=== PATIENT | male | born 1945 | race Caucasian/White ===

== ENCOUNTER 2019-05-31 13:24 | Inpatient (IN) ==
[2019-05-31] MEDS ORDERED: NS 1,000 ML IV PRN (13:57)
--- NOTE | 2019-05-31 14:13 | EKG Report ---
Test Performed on : 05/31/2019 1:40:06 PM Test Reason : Stroke like symptoms Blood Pressure : / mmHG Vent. Rate : 094 BPM Atrial Rate : 096 BPM P-R Int : 000 ms QRS Dur : 094 ms QT Int : 384 ms P-R-T Axes : 000 062 047 degrees QTc Int : 480 ms Accelerated Junctional rhythm. Prolonged QT Abnormal ECG When compared with ECG of 12-SEP-2016 12:03, Junctional rhythm. has replaced Sinus rhythm. Vent. rate has increased BY 39 BPM Unconfirmed Result
--- NOTE | 2019-05-31 14:19 | Diag Imaging Result Doc PS360 ---
EXAM: CHEST-PORTABLE 05/31/2019 HISTORY: weakness TECHNIQUE: AP portable upright at 1412 COMMENT: The inspiration is less optimal than on 06/11/2018. There is some ill-defined opacity in the left base laterally which was not present on the previous study. There are sternotomy wires. There is a Port-A-Cath on the right with its tip in the right atrium. IMPRESSION: Left lower lobe pneumonia. Electronically signed by Jesus Alberto Kern 05/31/2019 2:17 PM
--- NOTE | 2019-05-31 14:30 | Diag Imaging Result Doc PS360 ---
EXAM: CT HEAD W/O CONTRAST 05/31/2019 HISTORY: generalized weakness, difficulty walking, hx of ca TECHNIQUE: This exam was performed using automated exposure control, adjustment of mA or kV according to patient size, and/or use of iterative reconstruction technique. COMMENT: There is a small lacune in the right side of the juice which was apparently present on 07/06/2011. There is also a lacune in the same and on the right. There are patchy lucencies in the white matter of both hemispheres. No evidence of mass effect, bleed, or abnormal extra-axial fluid collection is present. IMPRESSION: Chronic microvascular white matter changes and old lacunae. No evidence of acute intracranial disease. Electronically signed by Jesus Alberto Kern 05/31/2019 2:28 PM
[2019-05-31 14:59] LABS: BASO# 0.02 X1000 (0.0-0.2); BASO% 0.2 % (0.0-0.8); EOS# 0.08 X1000 (0.0-0.7); EOS% 0.6 % (0.0-10.0); HEMATOCRIT 38.6 % (42.0-52.0); HEMOGLOBIN 12.8 g/dL (14.0-18.0); IMM GRAN# 0.03 X1000 (0.0-0.04); IMM GRAN% 0.2 % (0.0-0.5); LYMPH# 0.91 X1000 (1.2-3.4); LYMPH% 6.9 % (20.5-51.1); MCH 30.5 PG (27-31); MCHC 33.2 g/dL (33-37); MCV 92.1 FL (81-99); MONO# 0.87 X1000 (0.11-0.59); MONO% 6.6 % (1.7-9.3); MPV 9.8 FL (7.4-10.4); NEUT# 11.21 X1000 (1.4-6.5); NEUT% 85.5 % (42.2-75.2); PLT 175 X1000 (130-400); RBC 4.19 XMIL (4.7-6.1); RDW 12.8 % (11.5-14.5); WBC 13.12 X1000 (4.8-10.8)
[2019-05-31 14:59] LABS: URINE SOURCE CLEAN CATCH
[2019-05-31 15:02] LABS: BILIRUBIN URINE NEGATIVE (NEGATIVE); BLOOD URINE NEGATIVE (NEGATIVE); COLOR YELLOW; GLUCOSE URINE >1000 mg/dL (NEGATIVE); KETONE URINE NEGATIVE (NEGATIVE); LEUKOCYTES URINE NEGATIVE (NEGATIVE); NITRITE URINE NEGATIVE (NEGATIVE); PROTEIN URINE TRACE mg/dL (NEGATIVE); SP GRAVITY URINE 1.032; TURBIDITY URINE CLEAR (CLEAR); UR EPITHELIAL CELLS <10 /HPF (<10); URINE BACTERIA NEGATIVE /HPF; URINE RBC <10 /HPF (<10); URINE WBC <10 /HPF (<10); UROBILINOGEN URINE 2 mg/dL (NORMAL)
[2019-05-31 15:02] LABS: INR 1.24; PROTIME 15.8 Seconds (11.0-16.0)
[2019-05-31 15:03] LABS: PTT 37.1 Seconds (22.3-41.8)
[2019-05-31 15:19] LABS: AGAP 14; ALB/GLOB RATIO 1.7; ALBUMIN 3.8 g/dL (3.5-5.0); ALKALINE PHOSPHATASE 77 U/L (32-122); BUN 9 mg/dL (8-22); CALCIUM 9.4 mg/dL (8.8-10.2); CHLORIDE 99 mmol/L (98-107); COSMO 287; CREATININE 0.5 mg/dL (0.7-1.2); ESTIMATED GFR > 60; GLUCOSE 261 mg/dL (70-104); GOT 12 U/L (10-34); GPT 16 U/L (10-44); POTASSIUM 3.5 mmol/L (3.5-5.1); SODIUM 140 mmol/L (136-145); TCO2 27 mmol/L (25-35); TOTAL PROTEIN 6.1 g/dL (6.3-8.3)
[2019-05-31 15:21] LABS: UR AMPHETAMINES QUAL NONE DETECTED (NONE DETECT); UR BARBITUATES QUAL NONE DETECTED (NONE DETECT); UR BENZODIAZEPIN QUAL NONE DETECTED (NONE DETECT); UR CANNABINOIDS QUAL NONE DETECTED (NONE DETECT); UR COCAINE QUAL NONE DETECTED (NONE DETECT); UR METHADONE QUAL NONE DETECTED (NONE DETECT); UR OPIATES QUAL NONE DETECTED (NONE DETECT); UR OXYCODONE QUAL NONE DETECTED (NONE DETECT); UR PCP QUAL NONE DETECTED (NONE DETECT)
[2019-05-31] MEDS ORDERED: ROCEPHIN IV ONE (16:06)
--- NOTE | 2019-05-31 16:24 | PROVIDER DOCUMENTATION ---
This chart was entered by Abdias Rios Scribe, acting as scribe for Aby Rosen MD. HPI-General Adult - General Chief Complaint: Weakness Stated Complaint: ISSUES WALKING/ SITTING Time Seen by Provider: 05/31/19 13:43 Source: patient Allergies/Adverse Reactions: Patient Allergies Allergy/AdvReac Type Severity Reaction Status Date / Time No Known Allergies Allergy Verified 06/11/18 07:23 Home Medications: Home Medication List Medication Instructions Recorded Confirmed Last Taken Type Amlodipine Besylate [Norvasc] 5 mg PO DAILY 12/21/14 05/31/19 05/31/19 08:00 History 5 mg Ferrous Sulfate 325 mg PO DAILY 12/21/14 05/31/19 05/31/19 08:00 History 325 mg ATORVAstatin [Lipitor] 80 mg PO DAILY 06/11/18 05/31/19 05/31/19 08:00 History 80 mg Albuterol Sulfate [Albuterol 2 puff INH Q4-6H PRN PRN 05/31/19 05/31/19 Unknown History Sulfate Hfa] Apixaban [Eliquis] 5 mg PO BID 05/31/19 05/31/19 05/31/19 08:00 History 5 mg Arformoterol Neb [Brovana Neb] 15 microgm INH RTQ12H 05/31/19 05/31/19 05/31/19 08:00 History 1 inh Budesonide [Pulmicort] 1 vial INH BID 05/31/19 05/31/19 05/31/19 08:00 History 1 inh Glipizide [Glipizide ER] 10 mg PO DAILY 05/31/19 05/31/19 05/31/19 08:00 History 10 mg Multivit-Min/FA/Lycopen/Lutein 1 ea PO DAILY 05/31/19 05/31/19 05/31/19 08:00 History [Complete Multi 50+ Tablet] 1 tab Potassium Chloride [Klor-Con] 20 meq PO DAILY 05/31/19 05/31/19 05/31/19 08:00 History 20 meq Prednisone 10 mg PO DAILY 05/31/19 05/31/19 05/31/19 08:00 History 10 mg Tamsulosin [Flomax] 0.4 mg PO DAILY 05/31/19 05/31/19 05/31/19 08:00 History 0.4 mg Valsartan 160 mg PO DAILY 05/31/19 05/31/19 05/31/19 08:00 History 160 mg Vitamin B Complex [Super B-50 1 cap PO DAILY 05/31/19 05/31/19 05/31/19 08:00 History Complex] 1 Cap Zinc 50 mg PO DAILY 05/31/19 05/31/19 05/31/19 08:00 History 1 tab - History of Present Illness -Gen Adult Nature of Presenting Problems: 73 y/o M presents to the ED with due to an episode of weakness yesterday. Per , "He could hardly stand up or sit up." Patient's states that Dr. Santos referred patient to ED. Patient reports that weakness lasted "all evening" yesterday. Per patient's sx have improved since yesterday. Patient denies any confusion yesterday. reports that patient's speech was slurred yesterday, but has improved today. Patient c/o dull headache in left parietal region today and states that it was worse yesterday. Patient's states, "He has cancer in his sternum, spots on his lungs, and two places on his skull." Patient is not on active chemo. Location of Pain/Injury: reports: none Quality of Pain: reports: none Severity: reports: mild Onset/Duration: reports: 24 hours ago Timing: reports: gone now Context/Activities at Onset: reports: none Modifying Factors: improves with: nothing Associated Symptoms: reports: weakness Similar Symptoms Previously?: No Recently seen or treated by another doctor?: No Review of Systems - Adult - REVIEW OF SYSTEMS - ADULT Constitutional: denies: chills, fever Eyes: denies: decreased vision, blurred vision, double vision Ears, Nose, Mouth & Throat: reports: no symptoms reported Cardiovascular: denies: chest pain, palpitations Respiratory: denies: shortness of breath, wheezing Gastrointestinal: denies: abdominal pain, diarrhea, nausea, vomiting Genitourinary: denies: dysuria, frequency Musculoskeletal: reports: no symptoms reported Integumentary: reports: no symptoms reported Neurological: denies: dizziness/vertigo, headache/migraines, loss of balance Psychiatric: reports: no symptoms reported Endocrine: reports: no symptoms reported Hematologic/Lymphatic: reports: no symptoms reported Allergic/Immunologic: reports: no symptoms reported All Other Systems: Reviewed and Negative Past History - Adult - PAST MEDICAL HISTORY-ADULT Review of Records: reports: Nursing Assessment Review, Medications Reviewed Major Childhood Illnesses: reports: denies history Cardiovascular: reports: CAD, HTN, hyperlipidemia Respiratory: reports: denies history Gastrointestinal: reports: denies history Obstetrical/Gynecological: reports: denies history Genitourinary: reports: denies history Musculoskeletal: reports: denies history Neurological: reports: denies history Endocrine/Immune: reports: denies history Other Conditions: reports: other cancer (lip) - PRIOR SURGERIES/PROCEDURES Surgical/Procedure History: reports: recent surgery, CABG, other (excision of lip cancer) - IMMUNIZATION STATUS Childhood Immunizations: See Nurse Assessment Flu Vaccine: See Nurse Assessment - FAMILY HISTORY Family History: reviewed, not pertinent - SOCIAL HISTORY Smoking: cigarettes, less than 1 pack/day Substance Use: denies Physical Exam-General - PHYSICAL EXAM-ADULT Initial Vital Signs Reviewed: Yes - CONSTITUTIONAL General Appearance: alert, no apparent distress - EYES Eyes: PERRL/EOMI, pink conjunctivae - HEAD, EARS, NOSE, MOUTH & THROAT HENMT: moist mucous membranes - NECK Neck: full range of motion, normal inspection - RESPIRATORY Respiratory: lungs clear, no accessory muscle use, rhonchi, other (decreased breath sound on the left). negative: stridor, wheezing - CARDIOVASCULAR Cardiovascular: normal peripheral pulses, regular rate, rhythm - GASTROINTESTINAL (ABDOMEN) Abdominal Exam: non tender, soft - MUSCULOSKELETAL Back Exam: normal inspection Extremity: normal range of motion, normal capillary refill - SKIN Integumentary: normal color, warm/dry - NEUROLOGIC Neurologic: bioinformatics team member II-XII nml as tested - PSYCHIATRIC Psych/Mental Status: normal mood/affect, oriented x 3 Progress - PLAN OF CARE/RESULTS Progress/Plan/Lab Results: Vital Signs - 8 hr 05/31/19 13:27 05/31/19 13:44 05/31/19 14:01 Temperature 97.3 F L Pulse Rate 89 91 H 92 H Respiratory Rate 22 21 22 Blood Pressure 137/65 131/73 119/60 O2 Sat by Pulse Oximetry 97 94 L 99 05/31/19 14:31 Temperature Pulse Rate 89 Respiratory Rate 21 Blood Pressure 132/63 O2 Sat by Pulse Oximetry 97 Laboratory Results - last 24 hr 12/05/31/19 05/31/19 13:43 14:45 14:45 WBC 13.12 H RBC 4.19 L Hgb 12.8 L Hct 38.6 L MCV 92.1 MCH 30.5 MCHC 33.2 RDW Std Deviation 12.8 Plt Count 175 MPV 9.8 Immature Gran % (Auto) 0.2 Neut % (Auto) 85.5 H Lymph % (Auto) 6.9 L [place] % (Auto) 6.6 Eos % (Auto) 0.6 Baso % (Auto) 0.2 Immature Gran # (Auto) 0.03 Neut # (Auto) 11.21 H Lymph # (Auto) 0.91 L [place] # (Auto) 0.87 H Eos # (Auto) 0.08 Baso # (Auto) 0.02 PT 15.8 INR 1.24 PTT (Actin FS) 37.1 POC Glucose 254 H Troponin T Urine Source Urine Color Urine Turbidity Urine pH Ur Specific [place] Urine Protein Ur Glucose (Stick) Ur Ketones (Stick) Urine Blood Urine Nitrite Urine Bilirubin Urobilinogen Dipstick Urine Leukocytes Urine WBC (Auto) Urine RBC (Auto) U Epithel Cells (Auto) Urine Bacteria (Auto) 05/31/19 05/31/19 14:45 14:54 WBC RBC Hgb Hct MCV MCH MCHC RDW Std Deviation Plt Count MPV Immature Gran % (Auto) Neut % (Auto) Lymph % (Auto) [place] % (Auto) Eos % (Auto) Baso % (Auto) Immature Gran # (Auto) Neut # (Auto) Lymph # (Auto) [place] # (Auto) Eos # (Auto) Baso # (Auto) PT INR PTT (Actin FS) POC Glucose Troponin T < 0.010 Urine Source CLEAN CATCH Urine Color YELLOW Urine Turbidity CLEAR Urine pH 6.0 Ur Specific [place] 1.032 Urine Protein TRACE A Ur Glucose (Stick) >1000 A Ur Ketones (Stick) NEGATIVE Urine Blood NEGATIVE Urine Nitrite NEGATIVE Urine Bilirubin NEGATIVE Urobilinogen Dipstick 2 A Urine Leukocytes NEGATIVE Urine WBC (Auto) <10 Urine RBC (Auto) <10 U Epithel Cells (Auto) <10 Urine Bacteria (Auto) NEGATIVE Orders Category Date Time Status Cardiac Monitoring DIRECTED Care 05/31/19 14:01 Active Finger Stick Blood Sugar (ED) DIRECTED Care 05/31/19 14:01 Completed Saline Loc NOW Care 05/31/19 14:01 Active CHEST-PORTABLE [RAD] Stat Exams 05/31/19 14:[address] HEAD W/O CONTRAST [CT] Stat Exams 05/31/19 14:04 Completed CBC WITH ELECTRONIC DIFF [HEME] Stat Lab 05/31/19 14:45 Completed COMPREHENSIVE METABOLIC PANEL [CHEM] Stat Lab 05/31/19 14:45 Received PROTIME WITH INR [COAG] Stat Lab 05/31/19 14:45 Completed PTT [COAG] Stat Lab 05/31/19 14:45 Completed TROPONIN T Stat Lab 05/31/19 14:45 Completed URINALYSIS W/POSS RFLX CULT [URINALYSIS] Stat Lab 05/31/19 14:54 Completed URINE DRUG SCREEN Stat Lab 05/31/19 14:54 Received 0.9% Sodium Chloride Inj [Ns] 1,000 ml Med 05/31/19 13:57 Active IV 999 mls/hr EKG [EKG] Stat Ther 05/31/19 14:01 Draft Result Diagrams: 05/31/19 14:45 05/31/19 14:45 - REASSESSMENT Reassessment #2 Time Reassessed: 16:22 Status: unchanged (PORT/PSI score 131 hospitalization recommended) - EKG 1 Time of EKG reading by physician:: 13:41 EKG Read and Signed by:: Aby Rosen Rate: 94 Rhythm: normal sinus rhythm [place]: normal QRS: normal [place] Interval: normal ST Wave: normal - XRAY 1 XRAY Study: Chest Impression: See EMR Report (EXAM: CHEST-PORTABLE 05/31/2019 HISTORY: weakness TECHNIQUE: AP portable upright at 1412 COMMENT: The inspiration is less optimal than on 06/11/2018. There is some ill-defined opacity in the left base laterally which was not present on the previous study. There are sternotomy wires. There is a Port-A-Cath on the right with its tip in the right atrium. IMPRESSION: Left lower lobe pneumonia. Electronically signed by Jesus Alberto Kern 05/31/2019 2:17 PM 05/31/19 1417 Interpreting Physician: Jesus Alberto Kern MD Dictated Date/Time: 05/31/19 1416 cc: Aby Rosen MD; None,PCP) - CT/MRI 1 CT Study: Head Impression: See EMR Report (EXAM: CT HEAD W/O CONTRAST 05/31/2019 HISTORY: generalized weakness, difficulty walking, hx of ca TECHNIQUE: This exam was performed using automated exposure control, adjustment of mA or kV according to patient size, and/or use of iterative reconstruction technique. COMMENT: There is a small lacune in the right side of the juice which was apparently present on 07/06/2011. There is also a lacune in the same and on the right. There are patchy lucencies in the white matter of both hemispheres. No evidence of mass effect, bleed, or abnormal extra-axial fluid collection is present. IMPRESSION: Chronic microvascular white matter changes and old lacunae. No villa dence of acute intracranial disease. Electronically signed by Jesus Alberto Kern 05/31/2019 2:28 PM 05/31/19 1428 Interpreting Physician: Jesus Alberto Kern MD Dictated Date/Time: 05/31/191426 cc: Aby Rosen MD; Mahi Sorenson MD) - CONSULTS/PCP/HOSPITALIST Notification #1 *Consult/PCP/Hospitalist*: Margareth GARIBAY Time Discussed: 16:17 Consult Disposition: Admit (accepted patient for Dr Ramsay) Departure - Departure Date of Disposition Decision: 05/31/19 Time of Disposition Decision: 16:15 DIAGNOSIS: Pneumonia Qualifiers: Pneumonia type: due to unspecified organism Laterality: left Lung location: unspecified part of lung Qualified Code(s): J18.9 - Pneumonia, unspecified organism Disposition: ADMITTED INPATIENT 09 Certified Medical Emergency: Emergent Condition: Good Referrals and Follow-Ups: None,PCP [NON-STAFF PROVIDER] - Discharge Education: Steps to Quit Smoking, [id number] - Critical Care Note This patient required my direct & personal management of CC.: No Attestation - Physician/ LUCERO Attestation Patient care was provided by Advanced Practice Provider:: No The physician spent face to face time with patient:: Yes Advanced Practice Provider documentation review:: Supervising physician onsite and consulted in the evaluation and care of this patient. The physician did have a face to face encounter with the patient. This chart was documented by the indicated scribe, (Abdias Rios Scribe) and accurately reflects the services I performed and decisions made by me, Aby Rosen MD, as attested by the provider's signature.
[2019-05-31] MEDS ORDERED: TYLENOL PO PRN (17:26)
[2019-05-31] MEDS ORDERED: VENTOLIN HFA INH PRN (17:26)
[2019-05-31] MEDS ORDERED: ZOFRAN IV PRN (17:26)
[2019-05-31] MEDS: ROCEPHIN 1 GM in NS 50 ML IV SCH (17:59)
[2019-05-31 18:22] LABS: AGAP 14; BUN 8 mg/dL (8-22); CALCIUM 9.6 mg/dL (8.8-10.2); CHLORIDE 100 mmol/L (98-107); COSMO 287; CREATININE 0.5 mg/dL (0.7-1.2); ESTIMATED GFR > 60; GLUCOSE 223 mg/dL (70-104); POTASSIUM 3.8 mmol/L (3.5-5.1); SODIUM 141 mmol/L (136-145); TCO2 27 mmol/L (25-35)
[2019-05-31 18:33] LABS: BASO# 0.02 X1000 (0.0-0.2); BASO% 0.2 % (0.0-0.8); EOS# 0.08 X1000 (0.0-0.7); EOS% 0.7 % (0.0-10.0); HEMATOCRIT 37.7 % (42.0-52.0); HEMOGLOBIN 12.1 g/dL (14.0-18.0); IMM GRAN# 0.03 X1000 (0.0-0.04); IMM GRAN% 0.3 % (0.0-0.5); LYMPH% 7.2 % (20.5-51.1); MCH 29.9 PG (27-31); MCHC 32.1 g/dL (33-37); MCV 93.1 FL (81-99); MONO# 0.83 X1000 (0.11-0.59); MONO% 7.5 % (1.7-9.3); MPV 10.1 FL (7.4-10.4); NEUT# 9.36 X1000 (1.4-6.5); NEUT% 84.1 % (42.2-75.2); PLT 181 X1000 (130-400); RBC 4.05 XMIL (4.7-6.1); RDW 12.9 % (11.5-14.5); WBC 11.12 X1000 (4.8-10.8)
[2019-05-31] MEDS: PULMICORT INH SCH (19:30)
[2019-05-31] MEDS: BROVANA NEB INH SCH (19:30)
[2019-05-31] MEDS: DUONEB (A & A) INH SCH (19:30)
--- NOTE | 2019-05-31 21:28 | Diag Imaging Result Doc PS360 ---
EXAM: CT THORAX W/O CONTRAST INDICATION: Evaluate for left lung PNA. H/o left lung lobectomy TECHNIQUE: This exam was performed using automated exposure control, adjustment of mA or kV according to patient size, and/or use of iterative reconstruction technique. COMPARISON: 05/21/2018 FINDINGS: There has been a prior partial pneumonectomy on the left. There is patchy airspace consolidation throughout the left lung with tree-in-bud opacities mainly in the left upper lobe. This can indicate an infectious process with bronchiolitis or bronchogenic spread of carcinoma. There is a vaguely masslike opacity in the left hilar region that appears more prominent than the previous study. It measures up to 4.4 x 2.2 cm axially. Recurrent neoplasm cannot be excluded. However, some of this may represent fibrotic changes from radiation. There is traction bronchiectasis in the left perihilar region. The right lung is clear. There is no pleural fluid collection and no pneumothorax. There is subcarinal lymphadenopathy. The subcarinal robert conglomerate measures up to 4.3 x 1.4 cm axially (3.7 x 1.4 cm previously). Limited views of the upper abdomen reveals a large simple appearing right renal cyst. There is stable low dense adrenal gland thickening likely representing underlying adenomas or hyperplasia. There is nothing to suggest metastatic disease to the local skeleton. IMPRESSION: 1.Somewhat masslike left hilar density that is more prominent than the previous study. Recurrent neoplasm cannot be excluded. 2.Patchy infiltrates seen throughout the left lung that is most prominent at the apex with a tree-in-bud morphology. Consider infection with bronchiolitis or bronchogenic spread of carcinoma. Electronically signed by Sumit Nick 05/31/2019 9:26 PM
--- NOTE | 2019-05-31 21:54 | HISTORY AND PHYSICAL ---
PRIMARY CARE PHYSICIAN: Dr. Sorenson. ONCOLOGIST: Dr. Santos. CHIEF COMPLAINT: Generalized weakness, headache, shortness of breath and a cough that began over the last couple of days and progressively worsened. HISTORY OF PRESENTING ILLNESS: This is a 73-year-old male who presents to [facility] ER with complaints of generalized weakness, headache, shortness of breath, a productive cough. Was seen by Oncology and was sent for evaluation. He has had a history of cancer in his sternum and lungs and completed all of his chemo for that and also had a lip cancer removed. He is short of breath with 2 to 3 word sentences during assessment. His workup showed a white blood cell count of 13.12. His chest x- ray showed a left lower lobe pneumonia. He is saturating 97 to 99 percent on room air. He is noted to continue to smoke a half a pack of cigarettes a day but he will be admitted for further evaluation and treatment. PAST MEDICAL HISTORY: Coronary artery disease, hypertension, hyperlipidemia, lip cancer, sternum and lung cancer, CVA and diabetes type 2. PAST SURGICAL HISTORY: Of a lip cancer excision, a CABG and a Port-A-Cath placement, a partial left lower lobe lobectomy. FAMILY HISTORY: Reviewed and noncontributory. SOCIAL HISTORY: Currently lives with family, is a half a day smoker and has done so for the past 40+ years and denies any alcohol or illicit drug use. ALLERGIES: He has no known drug allergies. HOME MEDICATIONS: He takes albuterol inhaler 2 puffs q.4-6 hours p.r.n., Norvasc 5 mg p.o. daily, Eliquis 5 mg p.o. b.i.d., Brovana 15 mcg inhalation q.12 hours, atorvastatin 80 mg p.o. daily, Pulmicort 1 vial inhalation b.i.d., ferrous sulfate 325 mg p.o. daily, glipizide 10 mg p.o. daily will be held, multivitamin p.o. daily, Klor-Con 20 mEq p.o. daily, prednisone 10 mg p.o. daily, tamsulosin 0.4 mg p.o. daily, valsartan 160 mg p.o. daily, vitamin B complex 1 capsule p.o. daily and zinc 50 mg p.o. daily. LABORATORY DATA: Showed a white blood cell count of 13.12, hemoglobin 12.8, hematocrit 38.6, platelets 175,000, PT and INR of 15.8, 1.24. Sodium of 140, potassium 3.5, chloride 99, CO2 27, BUN of 9, creatinine 0.5, glucose 261. Troponin was negative. Urinalysis is negative. Urine drug screen showed none detected. Chest x-ray showed a left lower lobe pneumonia. EKG showed an accelerated junctional rhythm at 94. Head CT showed chronic microvascular white matter changes and an old lacuna. No evidence of an acute intracranial disease. REVIEW OF SYSTEMS: He denied any fever. He has had some chills, denied any blurred vision, dizziness, chest pain. He has had a productive cough, shortness of breath. Denied any abdominal pain, constipation, diarrhea, burning or hurting with urination. PHYSICAL EXAMINATION: On arrival he had a temperature of 97.3 degrees, pulse of 89, respirations 22, blood pressure 137/65, saturating 97% on room air. GENERAL: This is a 73-year-old male who is sitting up in the bed but answers questions appropriately. HEENT: Normocephalic, atraumatic. Normal ENT inspection. Oropharynx and nares are clear. Pupils are equal, round, and reactive to light, accommodation. Extraocular movements are intact. NECK: Normal inspection, normal range of motion. LUNGS: With some scattered wheezing and decreased breath sounds to the lower bases bilaterally, equal lung expansion, chest wall movement is noted. HEART: Regular rate and rhythm. No murmurs, rubs, or gallops. ABDOMEN: Soft, nontender, nondistended. Bowel sounds are present x4 quadrants. MUSCULOSKELETAL: He had a 5/5 strength x4 extremities. NEUROLOGICAL: The cranial nerves 2-12 appear grossly intact. ASSESSMENT: 1. A left lower lobe pneumonia. 2. Leukocytosis. 3. Diabetes type 2. 4. Tobacco abuse. 5. Recurrent lung cancer. OUR PLAN: He will be admitted to the medical unit, placed on telemetry, O2 per protocol, turn, cough, deep breathe q.2 hours, incentive spirometry, diabetic diet. Will apply SCDs for DVT prophylaxis. Place on Rocephin 1 gram IV q.24, azithromycin 500 mg IV q.24, DuoNeb q.4 hours and continue home medications as previously identified and will recheck a CBC, BMP in the a.m. Further orders after seen by attending. Dictated by YANDEL Rockwell for Claudio Ramsay MD cc: MD Claudio Romero MD I agree with most component of history, physical, assessment and plan. A separate addendum has been dictated. MTDD
[2019-05-31] MEDS: ELIQUIS PO SCH (23:19)
[2019-06-01] MEDS: DUONEB (A & A) INH SCH ×7 (00:30→23:20)
--- NOTE | 2019-06-01 00:56 | HISTORY AND PHYSICAL ---
ADDENDUM: To history and physical dictated by the nurse practitioner. I agree with most of history, physical, assessment, and plan. In brief, Mr. 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 In the emergency room, he was found to have shortness of breath, left lower lobe pneumonia and leukocytosis, so the hospitalist team was consulted for further management. SUBJECTIVE: The patient complains of feeling short of breath, having cough with expectoration and feeling chilly. He denies any chest pain, nausea, vomiting, abdominal pain, diarrhea or constipation. He states bilateral lower extremities have been feeling weak and he has not been able to stand up by himself as his legs would give out. He denies any abnormal sensation in lower extremities. He denies any urinary or bowel retention or incontinence, though he has had occasional urinary bowel incontinence intermittently since several months, which has not been changed in terms of character. He denies any loss of sensation. His family is at bedside. VITALS: Temperature 97.8 degrees, pulse 86, respiratory 20, blood pressure 130/60, saturating 98% on room air. PHYSICAL EXAMINATION: LUNGS: He is tachypneic, not in acute distress. He does have inspiratory crackles and rhonchi on left seth lung field. Right lung field has adequate air entry without wheeze, rhonchi, crackles. CARDIOVASCULAR: S1, S2 normal. No murmur or gallop. ABDOMEN: Soft, nontender. EXTREMITIES: No lower extremity edema. He has intact sensation bilateral gluteal and thigh region. His power is 4/5 in bilateral upper and lower extremities at thigh joints and knee joints as well as ankle joints. His reflexes are 2+ bilaterally on ankle jerk. His Babinski has plantar flexion. LABS: Suggestive of leukocytosis, normocytic anemia, normal platelet count. He has normal kidney function. Blood cultures have been collected. Head CT on presentation for generalized weakness and difficulty walking had chronic microvascular white matter changes without evidence of acute intracranial disease. Chest x-ray has left lobe pneumonia. ASSESSMENT AND PLAN: 1. Suspected left lower lobe pneumonia. Continue patient on intravenous ceftriaxone, azithromycin, and follow up with sputum culture and urine antigen report. Follow up frequent CBC as well as blood culture. 2. 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 I will follow up CT scan of the chest to evaluate his left lung pneumonia better. 3. Chronic obstructive pulmonary disease and chronic hypoxic respiratory failure. Continue albuterol/ipratropium nebulization, oral prednisone and budesonide inhaler. DISPOSITION: Monitor patient in the hospital as we take care of his pneumonia. Plan of care discussed with the patient and his family members, including at bedside, all of their questions have been answered. cc: Claudio Ramsay MD
[2019-06-01] MEDS: ZITHROMAX 500 MG/NS 500 MG/250 ML IVPB IV SCH (06:28)
[2019-06-01] MEDS: PRILOSEC PO SCH (06:55)
--- NOTE | 2019-06-01 07:38 | EKG Report ---
Test Performed on : 06/01/2019 07:11:03 AM Test Reason : Follow up qTc Blood Pressure : / mmHG Vent. Rate : 066 BPM Atrial Rate : 066 BPM P-R Int : 190 ms QRS Dur : 092 ms QT Int : 406 ms P-R-T Axes : 051 057 061 degrees QTc Int : 425 ms Normal sinus rhythm. with sinus arrhythmia. Normal ECG When compared with ECG of 31-MAY-2019 13:40, (Unconfirmed) Sinus rhythm. has replaced Junctional rhythm. QT has shortened Confirmed by Jacob DALAL, Dagoberto ([id number]) on 06/01/2019 8:14:18 AM
[2019-06-01] MEDS ORDERED: BROVANA NEB ONE (07:40)
[2019-06-01] MEDS: PULMICORT INH SCH ×2 (07:40→20:11)
[2019-06-01] MEDS: BROVANA NEB INH SCH ×2 (07:44→20:11)
[2019-06-01] MEDS: KLOR-CON POWDER PACKET PO SCH (09:26)
[2019-06-01] MEDS: FLOMAX PO SCH (09:26)
[2019-06-01] MEDS: PREDNISONE PO SCH (09:26)
[2019-06-01] MEDS: ZINC SULFATE PO SCH (09:26)
[2019-06-01] MEDS: NORVASC PO SCH (09:26)
[2019-06-01] MEDS: FERROUS SULFATE PO SCH (09:26)
[2019-06-01] MEDS: THERA M PLUS PO SCH (09:26)
[2019-06-01] MEDS: DIOVAN PO SCH (09:26)
[2019-06-01] MEDS: ELIQUIS PO SCH ×2 (09:26→20:31)
[2019-06-01] MEDS: VICON-C PO SCH (09:27)
[2019-06-01] MEDS: LIPITOR PO SCH (09:27)
--- NOTE | 2019-06-01 09:33 | PROGRESS NOTE ---
DATE: 06/01/2019 INTERVAL HISTORY: Mr. Kate got a CT scan of his chest yesterday which had detected patchy multifocal pneumonia and there was also a left hilar mass and possibly bronchogenic spread of his carcinoma. He otherwise denies new complaints. He still complains of weakness. I brought him the idea of rehab; however, he does not seem very excited about it and he would prefer going home. VITAL SIGNS: Temperature 98.1 degrees, pulse 70, respiratory rate 16, blood pressure 130/60, saturating 100% on 2 L nasal cannula. PHYSICAL EXAMINATION: General: Not in acute distress. HEENT: Oral cavity is moist. Lungs: He has a monophonic wheeze affecting left hemithorax mainly. No rhonchi or crackles. He has decreased lung sounds in general. Abdomen: Soft, nontender. Heart: S1, S2 normal. No murmur, rub or gallop. Extremities: No lower extremity edema. He is able to move both lower extremities spontaneously. LABORATORY STUDIES: No new labs in the morning time. Blood cultures are in lab. Sputum culture has not been collected. Chest CT had suggested masslike left hilar density. Recurrent neoplasm cannot be excluded. Patchy infiltrate seen throughout the left lung, most prominent at the apex, with tree-in-bud morphology, most likely considered consistent with bronchiolitis. ASSESSMENT AND PLAN: 1. Left upper lobe pneumonia: Follow up urine streptococcus and legionella antigen. Patient has not been able to make sputum. Follow up blood culture results. Continue intravenous ceftriaxone and azithromycin. 2. 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 This could be a recurrence of his cancer. I would suggest outpatient oncology followup. 3. Chronic obstructive pulmonary disease and chronic hypoxic respiratory failure: He uses nighttime oxygen. Continue albuterol/ipratropium nebulization, his home prednisone and budesonide. 4. History of multiple cerebrovascular accidents, suspected paroxysmal atrial fibrillation which patient was not entirely sure of, and essential hypertension: Continue home amlodipine, atorvastatin, valsartan and Eliquis. 5. History of chronic obstructive pulmonary disease, not in current exacerbation: Continue albuterol/ipratropium nebulization, budesonide and prednisone. 6. Disposition: Will continue to monitor patient on floor. Plan of care discussed with him. Physical therapy has been ordered. I will follow up TSH and vitamin D level because of his weakness. cc: Claudio Ramsay MD
[2019-06-01] MEDS: GLUCOTROL XL PO SCH ×2 (09:34→09:42)
[2019-06-01] MEDS: ROCEPHIN 1 GM in NS 50 ML IV SCH (17:37)
[2019-06-02] MEDS: DUONEB (A & A) INH SCH ×4 (03:39→15:25)
[2019-06-02] MEDS: ZITHROMAX 500 MG/NS 500 MG/250 ML IVPB IV SCH (06:09)
[2019-06-02] MEDS: PRILOSEC PO SCH (06:09)
[2019-06-02 06:51] LABS: BASO# 0.02 X1000 (0.0-0.2); BASO% 0.3 % (0.0-0.8); EOS# 0.08 X1000 (0.0-0.7); EOS% 1.3 % (0.0-10.0); HEMATOCRIT 33.7 % (42.0-52.0); HEMOGLOBIN 11.1 g/dL (14.0-18.0); LYMPH# 0.94 X1000 (1.2-3.4); LYMPH% 14.7 % (20.5-51.1); MCH 30.2 PG (27-31); MCHC 32.9 g/dL (33-37); MCV 91.8 FL (81-99); MONO# 0.51 X1000 (0.11-0.59); MPV 9.9 FL (7.4-10.4); NEUT# 4.83 X1000 (1.4-6.5); NEUT% 75.7 % (42.2-75.2); PLT 186 X1000 (130-400); RBC 3.67 XMIL (4.7-6.1); RDW 12.8 % (11.5-14.5); WBC 6.38 X1000 (4.8-10.8)
[2019-06-02 07:12] LABS: AGAP 13; BUN 8 mg/dL (8-22); CALCIUM 9.5 mg/dL (8.8-10.2); CHLORIDE 102 mmol/L (98-107); COSMO 281; CREATININE 0.5 mg/dL (0.7-1.2); ESTIMATED GFR > 60; GLUCOSE 126 mg/dL (70-104); POTASSIUM 3.6 mmol/L (3.5-5.1); SODIUM 141 mmol/L (136-145); TCO2 26 mmol/L (25-35)
[2019-06-02] MEDS ORDERED: BROVANA NEB ONE (07:47)
[2019-06-02] MEDS: BROVANA NEB INH SCH (07:55)
[2019-06-02] MEDS: PREDNISONE PO SCH (09:10)
[2019-06-02] MEDS: LIPITOR PO SCH (09:10)
[2019-06-02] MEDS: THERA M PLUS PO SCH (09:10)
[2019-06-02] MEDS: KLOR-CON POWDER PACKET PO SCH (09:10)
[2019-06-02] MEDS: ZINC SULFATE PO SCH (09:10)
[2019-06-02] MEDS: VICON-C PO SCH (09:10)
[2019-06-02] MEDS: DIOVAN PO SCH (09:10)
[2019-06-02] MEDS: NORVASC PO SCH (09:10)
[2019-06-02] MEDS: FERROUS SULFATE PO SCH (09:10)
[2019-06-02] MEDS: ELIQUIS PO SCH (09:10)
[2019-06-02] MEDS: GLUCOTROL XL PO SCH (09:10)
[2019-06-02] MEDS: FLOMAX PO SCH (09:10)
[2019-06-02] MEDS: PULMICORT INH SCH (11:19)
[2019-06-02 16:16] VITALS: BP 125/65
[2019-06-02] MEDS: ROCEPHIN 1 GM in NS 50 ML IV SCH (16:21)
--- NOTE | 2019-06-03 16:11 | DISCHARGE SUMMARY ---
ADMISSION DATE: 05/31/2019 DISCHARGE DATE: 06/02/2019 DISCHARGE DISPOSITION: Home with home physical therapy. DISCHARGE CONDITION: Hemodynamically stable. He is breathing well on room air. He denies any chest pain. His shortness of breath is currently at baseline. He was able to work with physical therapy up to the hallway. He was recommended going to the rehab, however ,he refused to go to rehab and instead wanted to go home. I confirmed that with his and she had conveyed that if he did not want to go to rehab, then he would not go to rehab, because he was very adamant, so home physical therapy was set up. He understood the benefits of rehab despite that he decided to go home. DISCHARGE DIAGNOSIS: Left upper lobe pneumonia. OTHER DIAGNOSES: 1. History of left lung adenocarcinoma status post lobectomy in 2014. 2. History of small cell lung carcinoma diagnosed in May 2018, metastatic to left parietal skull bone, status post chemotherapy and irradiation which was completed in December 2018. 3. Chronic obstructive pulmonary disease. 4. Chronic hypoxic respiratory failure on nighttime oxygen. 5. History of multiple cerebrovascular accident. 6. Suspected paroxysmal atrial fibrillation as per the reported history, though unclear. 7. Essential hypertension. DISCHARGE MEDICATIONS: 1. Augmentin 875 mg tablet 1 tablet b.i.d. for 4 days. 2. Albuterol sulfate 2 puffs inhaled every 4 to 6 hours as needed for shortness of breath. 3. Brovana nebulization b.i.d. 50 mcg inhaled every 12 hours. 4. Multivitamin with minerals 1 tablet daily. 5. Apixaban 5 mg b.i.d. 6. Ferrous sulfate 325 mg daily. 7. Tamsulosin 0.4 mg daily. 8. Glipizide 10 mg daily. 9. Potassium chloride 20 mEq daily. 10. Atorvastatin 80 mg daily. 11. Amlodipine 5 mg daily. 12. Prednisone 10 mg daily. 13. Budesonide 1 vial inhaled b.i.d. 14. Valsartan 160 mg daily. 15. Zinc and vitamin B complex 1 tablet daily. VITAL SIGNS: At the time of discharge temperature 98.8 degrees, pulse 87, respiratory rate 16, blood pressure 125/65, saturating 96% room air. PHYSICAL EXAMINATION: General: Not in acute distress. Oral cavity is moist. Lungs: Air entry bilaterally equal. He has rhonchi bilaterally, more pronounced on the left. No wheeze or crackles. Cardiovascular: S1, S2 normal. Regular. No murmur. Abdomen: Soft, nontender. No lower extremity edema. LABORATORY: During hospital admission and discharge: [place] [address] which improved [place] 6000 at time of discharge, hemoglobin 11.1, platelet count 186,000. He had BUN of 8 and creatinine 0.5, blood glucose 127. His urine Streptococcus and Legionella antigen were negative. Urine toxicology was unremarkable. Blood culture did not have any growth. Head CT on presentation had chronic microvascular white matter changes and old lacunae without any evidence of intracranial pathology. Chest CT had a masslike left hilar density which was more prominent than previous study. Recurrent neoplasm could not be excluded. Patchy infiltrate seen throughout the left lung, most prominent at the apex with tree-in-bud morphology suggestive of bronchiolitis or bronchogenic spread of carcinoma. HOSPITAL COURSE SUMMARY: Mr. Kate is a [id number] man with past medical history of coronary artery disease status post CABG in 2007, essential hypertension, noninsulin dependent diabetes mellitus, COPD, chronic hypoxic respiratory failure with nighttime oxygen, left lung adenocarcinoma in 2014, status post lobectomy; recurrence with small cell lung cancer in 2018, status post chemo and radiation, who came in with chief complaints of weakness the last 3 weeks which was gradually progressive and was getting worse to an extent that he was not able to remain standing up by the bedside, so he was brought to the emergency room. In the emergency room, he was found to have shortness of breath, left lung pneumonia with leukocytosis, so hospitalist team was consulted for further management. Patient was started on intravenous fluids intravenous antibiotics and chest CT was performed which was suggestive of a mass in the left perihilar region. There were also infiltrates which were concerning for either bronchogenic spread of carcinoma or pneumonia. With intravenous antibiotics, however, his shortness of breath had improved. His physical deconditioning had also improved. He was advised to go to rehab, which he refused to, so it was decided to discharge him home with home physical therapy. Concerning the left hilar mass he was explained to that it was unclear whether it was a recurrence of the cancer and he was advised to have a followup with Dr. Santos who is his primary oncologist within 1 to 2 weeks time which he agreed. PLAN: I called the patient's and discussed with her about plan of care. She was in agreement. All of her questions were answered. TIME SPENT AT DISCHARGE: 25 minutes of time was spent in discharging this patient. cc: Claudio Ramsay MD MTDD
== END 2019-06-02 18:35 | disposition home health service (06) | DRG 194 ==
LOC: ED 13:24 → EDIPHOLD 16:52 → 4N 20:57
PROVIDERS: ATTEND Internal Medicine